=== PATIENT | female | born 1970 | race Caucasian/White ===

== ENCOUNTER 2017-01-08 07:43 | Emergency (ER) | payer MEDICAID ==
[2017-01-08 08:12] LABS: INFLUENZA A NEGATIVE (NEGATIVE); INFLUENZA B POSITIVE (NEGATIVE); STREP A SCREEN NEGATIVE (NEGATIVE)
[2017-01-08 08:21] LABS: URINE APPEARANCE CLEAR; URINE BILIRUBIN NEGATIVE (NEGATIVE); URINE BLOOD NEGATIVE (NEGATIVE); URINE COLOR YELLOW; URINE GLUCOSE (UA) NEGATIVE (NEGATIVE); URINE KETONE NEGATIVE (NEGATIVE); URINE LEUKOCYTE ESTERASE NEGATIVE (NEGATIVE); URINE NITRITE NEGATIVE (NEGATIVE); URINE PROTEIN NEGATIVE (NEGATIVE); URINE UROBILINOGEN 0.2 E.U./dL (0.20 - 1.00)
--- NOTE | 2017-01-08 08:34 | Emergency Department Record ---
History of Present Illness - General Chief complaint: ENT Stated complaint: SORE THROAT/CONGESTION Time Seen by Provider: 01/08/17 07:56 Source: Patient Mode of Arrival: Ambulatory Limitations: No limitations - History of Present Illness Initial comments: pt has sore throat and prod green cough, chills. she also has freq and urgency.her stepson has strep throat. pt has had these symptoms for 3 days MD complaint: Sore throat Onset/Timin -: Days(s) Severity: Mild Consistency: Constant Improves with: None Worsens with: None Associated Symptoms: Cough, Pain with swallowing, Rhinorrhea, Sore throat - Related Data Home Medications Medication Instructions Recorded Confirmed Last Taken Clonazepam [Klonopin] 2 tab PO QHS 09/11/14 01/08/17 01/07/17 Clopidogrel Bisulfate [Plavix] 75 mg PO DAILY 09/11/14 01/08/17 01/08/17 Topiramate [Topamax] 50 mg PO QHS 09/11/14 01/08/17 01/07/17 Folic Acid [Folic Acid] 1 mg PO DAILY 10/29/14 01/08/17 01/07/17 Quetiapine Fumarate [Seroquel] 100 mg PO QHS 09/10/15 01/08/17 01/07/17 Ferrous Sulfate [Ferosul] 325 mg PO DAILY 01/08/17 01/08/17 01/08/17 Allergies Allergy/AdvReac Type Severity Reaction Status Date / Time aspirin Allergy Intermediate RASH Verified 09/10/15 17:01 Opioids - Morphine Analogues Allergy Intermediate RASH Verified 09/10/15 17:02 Penicillins Allergy Intermediate RASH Verified 09/10/15 17:01 Travel Screening - Travel/Exposure Within Last 30 Days Have you traveled within the last 30 days?: No - Travel/Exposure Within Last Year Have you traveled outside the [place] in the last year?: No - Additonal Travel Details Have you been exposed to anyone with a communicable illness?: No - Travel Symptoms Symptom Screening: None Review of Systems Reviewed: No additional complaints except as noted below Constitutional: Reports: As per HPI. Denies: Chills, Fever, Malaise, Night sweats, Weakness, Weight change Eyes: Reports: As per HPI. Denies: Eye discharge, Eye pain, Photophobia, Vision change ENT: Reports: As per HPI. Denies: Congestion, Dental pain, Ear pain, Epistaxis , Hearing loss, Throat pain Respiratory: Reports: As per HPI. Denies: Cough, Dyspnea, Hemoptysis, Stridor, Wheezes Cardiovascular: Reports: As per HPI. Denies: Arrhythmia, Chest pain, Dyspnea on exertion, Edema, Murmurs, Orthopnea, Palpitations, Paroxysmal nocturnal dyspnea, Rheumatic Fever, Syncope Endocrine: Reports: As per HPI. Denies: Fatigue, Heat or cold intolerance, Polydipsia, Polyuria Gastrointestinal: Reports: As per HPI. Denies: Abdominal pain, Constipation, Diarrhea, Hematemesis, Hematochezia, Melena, Nausea, Vomiting Genitourinary: Reports: As per HPI. Denies: Abnormal menses, Discharge, Dyspareunia, Dysuria, Frequency, Hematuria, Incontinence, Retention, Urgency Musculoskeletal: Reports: As per HPI. Denies: Arthralgia, Back pain, Gout, Joint swelling, Myalgia, Neck pain Skin: Reports: As per HPI. Denies: Bruising, Change in color, Change in hair/ nails, Lesions, Pruritus, Rash Neurological: Reports: As per HPI. Denies: Abnormal gait, Confusion, Headache, Numbness, Paresthesias, Seizure, Tingling, Tremors, Vertigo, Weakness Psychiatric: Reports: As per HPI. Denies: Anxiety, Auditory hallucinations, Depression, Homicidal thoughts, Suicidal thoughts, Visual hallucinations Hematological/Lymphatic: Reports: As per HPI. Denies: Anemia, Blood Clots, Easy bleeding, Easy bruising, Swollen glands Past Medical History - SOCIAL HISTORY Smoking Status: Former smoker Alcohol Use: None Drug Use: None - RESPIRATORY Hx Respiratory Disorders: No - CARDIOVASCULAR Hx Cardio Disorders: No - NEURO Hx Neuro Disorders: Yes Hx CVA: Yes Hx TIA: Yes Comment:: Aneurysm - GI Hx GI Disorders: Yes Hx Abdominal Pain: Yes Comment:: constipation - Hx Genitourinary Disorders: No - ENDOCRINE Hx Endocrine Disorders: No - MUSCULOSKELETAL Hx Musculoskeletal Disorders: No - PSYCH Hx Psych Problems: Yes Hx Anxiety: Yes Hx Behavior Problems: Yes (Bipolar) Hx Depression: Yes - HEMATOLOGY/ONCOLOGY Hx Hematology/Oncology Disorders: No Family Medical History Any Significant Family History?: No Physical Exam - General General Appearance: Alert, Oriented x3, Cooperative, Mild distress - Head Head exam: Normal inspection - Eye Eye exam: Normal appearance, PERRL, EOMI Pupils: Normal accommodation - ENT ENT exam: Normal exam, Mucous membranes moist, Normal external ear exam, Normal orophraynx Ear exam: Normal external inspection. negative: External canal tenderness Nasal Exam: Normal inspection. negative: Discharge, Sinus tenderness Mouth exam: Normal external inspection, Tongue normal Teeth exam: Normal inspection. negative: Dental caries Throat exam: Normal inspection. negative: Tonsillar erythema, Tonsillar exudate - Neck Neck exam: Normal inspection, Full ROM. negative: Tenderness - Respiratory Respiratory exam: Normal lung sounds bilaterally. negative: Respiratory distress - Cardiovascular Cardiovascular Exam: Regular rate, Normal rhythm, Normal heart sounds - GI/Abdominal GI/Abdominal exam: Soft, Normal bowel sounds. negative: Tenderness - Rectal Rectal exam: Deferred - exam: Deferred - Extremities Extremities exam: Normal inspection, Full ROM, Normal capillary refill. negative: Tenderness - Back Back exam: Reports: Normal inspection, Full ROM. Denies: Muscle spasm, Rash noted, Tenderness - Neurological Neurological exam: Alert, CN II-XII intact, Normal gait, Oriented X3 - Psychiatric Psychiatric exam: Normal affect, Normal mood - Skin Skin exam: Dry, Intact, Normal color, Warm Course Vital Signs 01/08/17 07:47 Temperature 97.5 F L Pulse Rate 112 H Respiratory 18 Rate Blood Pressure 131/86 Pulse Ox 96 Disposition Disposition: Discharge Clinical Impression: Influenza B Disposition: Home, Self-Care Condition: (1) Good Instructions: Influenza (ED) Additional Instructions: follow up with family doctor. return sooner if worse. call neurosurgeon to inform of flu. push fluids. rest Forms: Patient Portal Access
== END 2017-01-08 08:52 | disposition home or self-care (01) ==
LOC: ER 07:43
DX: J10.1 Influenza due to other identified influenza virus with other respiratory manifestations (principal)
CPT/HCPCS: 71020; 81003; 87400; 87880; 99282

== ENCOUNTER 2017-01-30 15:02 | Emergency (ER) | payer MEDICAID ==
--- NOTE | 2017-01-30 15:15 | Emergency Department Record ---
History of Present Illness - General Chief Complaint: Neck Injury/Pain Stated Complaint: neck Time Seen by Provider: 01/30/17 15:14 Source: Patient Mode of Arrival: Ambulatory Limitations: No limitations - History of Present Illness Initial Comments: The patient is here due to waking up today with R sided neck pain. She believes she slept funny last night which caused the pain.The pain is sharp and stabbing and is MUCH worse with any head movement or turning and is basically not present when holding her head still. The pain does intermittently radiate down the back of the R upper arm but she denies any arm weakness, numbness or any tingling. The patient has had similar issues in the past with muscle neck spasms just like this. The patient additionally is to have brain surgery in [place] soon due to problems with aneurysm's and she denies any recent problems with BERGER's, visual changes or weakness. The patient did drive here with no difficulty. MD Complaint: Neck pain Onset/Timin -: Days(s) Place: Home Radiation: Right lateral, Right shoulder, Right upper extremity Severity: Moderate Severity scale (1-10): 7 Quality: Aching, Stabbing Consistency: Constant, Intermittent - Related Data Home Medications Medication Instructions Recorded Confirmed Last Taken Clonazepam [Klonopin] 1 tab PO QHS 09/11/14 01/30/17 1 Day Ago Clopidogrel Bisulfate [Plavix] 75 mg PO DAILY 09/11/14 01/30/17 1 Day Ago Topiramate [Topamax] 50 mg PO QHS 09/11/14 01/30/17 1 Day Ago Folic Acid [Folic Acid] 1 mg PO DAILY 10/29/14 01/30/17 1 Day Ago Quetiapine Fumarate [Seroquel] 100 mg PO QHS 09/10/15 01/30/17 1 Day Ago Ferrous Sulfate [Ferosul] 325 mg PO DAILY 01/08/17 01/30/17 1 Day Ago Fluoxetine HCl [Prozac] 40 mg PO DAILY 01/30/17 01/30/17 1 Day Ago Previous Rx's Medication Instructions Recorded Hydrocodone/Acetaminophen [[place] 1 each PO QID #10 tablet 01/30/17 5-325 Tablet] Allergies Allergy/AdvReac Type Severity Reaction Status Date / Time aspirin Allergy Intermediate RASH Verified 01/30/17 15:12 Opioids - Morphine Analogues Allergy Intermediate RASH Verified 01/30/17 15:12 Penicillins Allergy Intermediate RASH Verified 01/30/17 15:12 Travel Screening - Travel/Exposure Within Last 30 Days Have you traveled within the last 30 days?: No - Travel/Exposure Within Last Year Have you traveled outside the [place] in the last year?: No - Additonal Travel Details Have you been exposed to anyone with a communicable illness?: No - Travel Symptoms Symptom Screening: None Review of Systems Constitutional: Denies: Chills, Fever Eyes: Denies: Eye discharge ENT: Denies: Congestion Respiratory: Denies: Cough, Dyspnea Past Medical History - SOCIAL HISTORY Smoking Status: Former smoker Alcohol Use: None Drug Use: None - RESPIRATORY Hx Respiratory Disorders: No - CARDIOVASCULAR Hx Cardio Disorders: No - NEURO Hx Neuro Disorders: Yes Hx CVA: Yes Hx TIA: Yes Comment:: Aneurysm, with 2 coils and stent - GI Hx GI Disorders: Yes Hx Abdominal Pain: Yes Comment:: constipation - Hx Genitourinary Disorders: No - ENDOCRINE Hx Endocrine Disorders: No - MUSCULOSKELETAL Hx Musculoskeletal Disorders: No - PSYCH Hx Psych Problems: Yes Hx Anxiety: Yes Hx Behavior Problems: Yes (Bipolar) Hx Depression: Yes - HEMATOLOGY/ONCOLOGY Hx Hematology/Oncology Disorders: No Family Medical History Any Significant Family History?: Yes Physical Exam - General General Appearance: Alert, Oriented x3, Cooperative, No acute distress - Head Head exam: Atraumatic, Normocephalic, Normal inspection - Eye Eye exam: Normal appearance, PERRL - ENT Throat exam: Normal inspection. negative: Tonsillar erythema, Tonsillar exudate - Neck Neck exam: Normal inspection, Tenderness (There is very reproducible tenderness to palpation of the R posterior cervical area and R Trapezius.). negative: Full ROM (Head turning and twisting does reproduce the neck pain.), Lymphadenopathy - Respiratory Respiratory exam: Normal lung sounds bilaterally. negative: Respiratory distress - Cardiovascular Cardiovascular Exam: Regular rate, Normal rhythm, Normal heart sounds - Extremities Extremities exam: Normal inspection, Full ROM, Normal capillary refill. negative: Tenderness - Neurological Neurological exam: Alert, Normal gait, Oriented X3, Reflexes normal. negative: Abnormal gait, Altered, Motor sensory deficit (Motor and Sensory are 5/5 and equal to all muscle groups in the arms bilaterally.) Course Vital Signs 01/30/17 15:04 Temperature 98.3 F Pulse Rate 81 Respiratory 16 Rate Blood Pressure 125/79 Pulse Ox 99 - Reevaluation(s) Reevaluation #1: The patient is doing well. She states the only thing that helps her pain is [place]. I did explain the Flu test was neg and she states she would like to go home. 01/30/17 16:00 Disposition Disposition: Discharge Clinical Impression: Cervical muscle strain Qualifiers: Encounter type: initial encounter Qualified Code(s): S16.1XXA - Strain of muscle, fascia and tendon at neck level, initial encounter Disposition: Home, Self-Care Condition: (1) Good Instructions: Muscle Strain (ED) Additional Instructions: Please take [place] for pain as directed. Please see your PCP for recheck in 2-3 days if needed. Please return to the ER for any increased pain, fever, weakness , numbness or any bowel or bladder issues. Prescriptions: Hydrocodone/Acetaminophen [[place] 5-325 Tablet] 1 each PO QID #10 tablet Forms: Patient Portal Access Time of Disposition: 16:03
[2017-01-30] MEDS ORDERED: ACETAMINOPHEN 325 MG TAB PO ONE (15:28)
[2017-01-30 15:55] LABS: INFLUENZA A NEGATIVE (NEGATIVE); INFLUENZA B NEGATIVE (NEGATIVE)
== END 2017-01-30 16:05 | disposition home or self-care (01) ==
LOC: ER 15:02
DX: S16.1XXA Strain of muscle, fascia and tendon at neck level, initial encounter (principal); M25.511 Pain in right shoulder; X50.0XXA Overexertion from strenuous movement or load, initial encounter; Y93.84 Activity, sleeping; Y92.009 Unspecified place in unspecified non-institutional (private) residence as the place of occurrence of the external cause
CPT/HCPCS: 87400; 99282